=== PATIENT | female | born 1970 | race Caucasian/White ===

== ENCOUNTER 2016-05-03 15:34 | Emergency (ER) | payer MEDICARE ==
[~2016-05-03] VITALS: Ht 165.1 cm; Wt 84.1 kg
[2016-05-03 15:36] VITALS: BP 134/85
[2016-05-03] MEDS ORDERED: LORazepam 1MG TABLET ONE (16:26)
[2016-05-03] MEDS ORDERED: LORazepam 1MG TABLET PO ONE (16:30)
[2016-05-03 16:49] LABS: BLOOD UREA NITROGEN 8 mg/dL (7-18)
[2016-05-03 16:56] LABS: ASPARTATE AMINO TRANSFERASE 44 U/L (15-37)
[2016-05-03 16:57] LABS: ACETAMINOPHEN < 2 mcg/mL (10-30)
[2016-05-03 17:01] LABS: DAU SCREEN DISCLAIMER
[2016-05-03] MEDS ORDERED: IBUPROFEN 200 MG TABLET ONE (23:57)
[2016-05-04] MEDS ORDERED: CITA10TA8 PO (01:42)
[2016-05-04] MEDS ORDERED: TRAZ50TA18 PO (01:42)
[2016-05-04] MEDS ORDERED: DEXT10TA7 PO (01:42)
== END 2016-05-03 18:26 | disposition left against medical advice (07) ==
LOC: ED 18:20
DX: F10.129 Alcohol abuse with intoxication, unspecified (principal); Y90.9 Presence of alcohol in blood, level not specified; F32.9 Major depressive disorder, single episode, unspecified; F17.210 Nicotine dependence, cigarettes, uncomplicated; F98.8 Other specified behavioral and emotional disorders with onset usually occurring in childhood and adolescence; Z79.899 Other long term (current) drug therapy; Y08.89XA Assault by other specified means, initial encounter; Y07.03 Male partner, perpetrator of maltreatment and neglect; Y93.89 Activity, other specified; Y92.89 Other specified places as the place of occurrence of the external cause; Y99.8 Other external cause status
CPT/HCPCS: 36415; 80053; 80307; 80329; 84703; 85025; G0480

== ENCOUNTER 2016-05-03 17:58 | Observation (INO) | payer MEDICARE ==
[~2016-05-03] VITALS: Ht 167.6 cm; Wt 75.0 kg
[2016-05-04] MEDS ORDERED: IBUPROFEN 200 MG TABLET PO ONE
[2016-05-04 00:05] LABS: HEMOGLOBIN 16.9 g/dL (11.7-16.4)
[2016-05-04 00:16] LABS: DAU SCREEN DISCLAIMER
[2016-05-04 00:18] LABS: ASPARTATE AMINO TRANSFERASE 46 U/L (15-37); BLOOD UREA NITROGEN 9 mg/dL (7-18)
[2016-05-04 00:28] LABS: ACETAMINOPHEN < 2 mcg/mL (10-30)
[2016-05-04] MEDS ORDERED: POTASSIUM CHLORIDE 20 MEQ TAB.ER.PRT PO ONE ×2 (01:30→07:30)
[2016-05-04] MEDS ORDERED: CITA10TA8 PO (01:42)
[2016-05-04] MEDS ORDERED: DEXT10TA7 PO (01:42)
[2016-05-04] MEDS ORDERED: TRAZ50TA18 PO (01:42)
[2016-05-04 02:51] VITALS: BP 123/82
[2016-05-04] MEDS ORDERED: BISACODYL 10 MG SUPP PR PRN (03:00)
[2016-05-04] MEDS ORDERED: POLYETHYLENE GLYCOL 17 GM PACKET PO PRN (03:00)
[2016-05-04] MEDS ORDERED: ACETAMINOPHEN 325 MG TABLET PO PRN (03:00)
[2016-05-04] MEDS ORDERED: ONDANSETRON ODT 4 MG PO PRN (03:00)
[2016-05-04] MEDS ORDERED: DOCUSATE 100 MG CAPSULE PO PRN (03:00)
[2016-05-04 07:45] VITALS: BP 105/72
[2016-05-04] MEDS: GABAPENTIN 400 MG CAPSULE PO SCH ×3 (08:58→20:10)
[2016-05-04] MEDS: NICOTINE 14MG/24 HR PATCH.TD24 TD SCH (08:58)
[2016-05-04] MEDS: CITALOPRAM 10 MG TABLET PO SCH (08:58)
[2016-05-04] MEDS: LORazepam 1MG TABLET PO PRN ×2 (10:29→20:11)
[2016-05-04 19:31] VITALS: BP 127/77
[2016-05-04] MEDS: TRAZODONE 50MG TABLET PO PRN (20:11)
[2016-05-05 07:20] VITALS: BP 114/74
[2016-05-05] MEDS: GABAPENTIN 400 MG CAPSULE PO SCH ×3 (09:20→20:47)
[2016-05-05] MEDS: CITALOPRAM 10 MG TABLET PO SCH (09:20)
[2016-05-05] MEDS: LORazepam 1MG TABLET PO PRN ×2 (09:20→17:40)
[2016-05-05] MEDS: NICOTINE 14MG/24 HR PATCH.TD24 TD SCH (09:20)
[2016-05-05 19:20] VITALS: BP 118/82
[2016-05-05] MEDS: TRAZODONE 50MG TABLET PO PRN ×2 (20:48→20:49)
[2016-05-06] VITALS (14 sets, daily range): BP systolic 99–135; BP diastolic 64–86
[2016-05-06] MEDS: LORazepam 1MG TABLET PO PRN ×2 (08:05→17:14)
[2016-05-06] MEDS: CITALOPRAM 10 MG TABLET PO SCH (08:05)
[2016-05-06] MEDS: NICOTINE 14MG/24 HR PATCH.TD24 TD SCH (08:06)
[2016-05-06] MEDS: GABAPENTIN 400 MG CAPSULE PO SCH ×2 (08:06→15:02)
[2016-05-06] MEDS ORDERED: HYDROcodone/APAP 5/325 TABLET PO PRN (16:00)
[2016-05-06] MEDS ORDERED: IBUPROFEN 200 MG TABLET PO PRN (16:00)
== END 2016-05-06 19:21 ==
LOC: ED 23:59 → EDIP 05-04 01:13 → 3E 05-04 02:46
PROVIDERS: ADMIT Internal Medicine; ATTEND Internal Medicine
DX: R45.851 Suicidal ideations (principal); F10.129 Alcohol abuse with intoxication, unspecified; F41.9 Anxiety disorder, unspecified; F32.9 Major depressive disorder, single episode, unspecified; F90.9 Attention-deficit hyperactivity disorder, unspecified type; F12.10 Cannabis abuse, uncomplicated; Z72.0 Tobacco use; Z98.890 Other specified postprocedural states; Z81.8 Family history of other mental and behavioral disorders; Y07.03 Male partner, perpetrator of maltreatment and neglect; Y09 Assault by unspecified means
CPT/HCPCS: 36415; 80053; 80307; 80329; 81003; 84443; 84703; 85025; 99285; G0378; G0480